=== PATIENT | male | born 1940 | race Caucasian/White ===

== ENCOUNTER → 2017-10-17 | Day surgery (SDC) | payer OTHER, MEDICARE ==
[2017-10-12 08:57] VITALS: Ht 176.5 cm; Wt 66.8 kg
[~2017-10-17] VITALS: Ht 176.5 cm; Wt 66.8 kg
[~2017-10-17] MED LIST: ALLO300T2 PO; ASPCH81X PO; ATOR-26 PO; BUPIVACAINE 0.25% 30 ML VIAL ONE; DLCSR180 PO; FINA5TAB PO; LIDOCAINE HCL 1% MPF 5 ML VIAL ONE; METO50TA8 PO; MIRT45TA PO; MISCTAB78 PO; MULT-506 PO; RIVA1TAB4 PO
--- NOTE | 2017-10-17 14:58 | History & Physical Bridge - [place] ---
H&P Re-Evaluation Bridge Note: I have examined the patient, reviewed the History & Physical and in the interval since the performance of the History & Physical I have noted the following changes of clinical significance: No changes noted
--- NOTE | 2017-10-17 15:18 | [facility] Post Operative Brief Note ---
Immediate Operative Summary Operative Date Oct 17, 2017. Pre-Operative Diagnosis Lumbar facet joint pain Post-Operative Diagnosis Same Procedure(s) Performed Right L5-S1 Medial Branch Block Surgeon Dr. Tatianna Dukes Realty Specialist Surgeon(s) None Estimated Blood Loss 0 Findings Consistent with Post-Op Diagnosis Specimens NA Anesthesia Type Local Complication(s) none Disposition Disposition:
--- NOTE | 2017-10-17 15:19 | Discharge Instructions ---
Discharge Instructions Date of Service Oct 17, 2017. Visit Reason for Visit: Lumbar Facet Joint Pain, Low Back Pain Discharge Discharge Diagnosis / Problem: Low back pain Discharge Goals Goal(s): Decrease discomfort, Improve function Activity Recommendations Activity Limitations: resume your previous activity Anesthesia . Post Anesthesia Instructions: If you have had General Anesthesia or IV Sedation: * Do not drive today. * Resume driving when surgeon permits. * Do not make important decisions or sign legal documents today. * Call surgeon for: 1. Temperature elevations greater than 101 degrees F. 2. Uncontrollable pain. 3. Excessive bleeding. 4. Persistent nausea and vomiting. 5. Medication intolerance (nausea, vomiting or rash). * For nausea and vomiting use only clear liquids such as: tea, soda, bouillon until nausea subsides, then gradually increase diet as tolerated. * If you have any concerns or questions, call your surgeon's office. If physician is unavailable and it is an emergency, call 911 or go to the nearest emergency room. . Diet Recommendations Recommended Home Diet: resume previous diet Procedures Procedures Performed: Right L5-S1 Medial Branch Block Pending Studies Studies pending at discharge: no Medical Emergencies . Who to Call and When: Medical Emergencies: If at any time you feel your situation is an emergency, please call 911 immediately. . Non-Emergent Contact Non-Emergency issues call your: Specialist . . "Provider Documentation" section prepared by Roni Dukes. .
[2017-10-17 15:30] VITALS: TEMP 37
[2017-10-17 15:47] VITALS: BP 132/86; PULSE 89; O2SAT 97
--- NOTE | 2017-10-17 19:34 | OPERATIVE REPORT ---
DATE OF OPERATION: 10/17/2017 PREOPERATIVE DIAGNOSES: Lumbar facet joint pain, chronic low back pain. POSTOPERATIVE DIAGNOSIS: Lumbar facet joint pain, chronic low back pain. PROCEDURE: Right L5-S1 medial branch blocks. INDICATIONS: The patient is a 77-year-old white male with a few year history of chronic low back pain. He describes over the past 2 or 3 years, he denies any radicular pain but it is in the lower back consistent with a facet arthropathy. He presents today for medial branch blocks to confirm this is indeed the pain generator of the back. PHYSICAL EXAMINATION: GENERAL: Pleasant male, seated comfortably. MUSCULOSKELETAL: He has tenderness to palpation of the right L5-S1 facet region, worse with extension, rotation. He has normal lower extremity strength. CONSENT: Verbal and written consent was obtained from the patient. Risks and benefits were reviewed. Risks include but are not limited to abscess, allergic reaction and wishes to proceed. PROCEDURE: The patient was taken back to the special procedures room of [facility]. He is maintained in a prone position. Backside was cleansed with Betadine x3 and a dry sterile dressing was applied. Fluoroscope was used to identify the L5 transverse process junction and the right sacral ala. Overlying skin was anesthetized with 2.5 mL of lidocaine 1% with a 25-gauge 1.5-inch needle at each site. A 25-gauge 3-1/2-inch spinal needle contacted bone on each side, was then injected with 1 mL of bupivacaine 0.25%. Injections were well tolerated. DISPOSITION: 1. The patient is taken out into the discharge recovery area where he will be discharged home once discharge criteria have been met. 2. Follow up in the [facility] office in 4 weeks' time. I attest to the content of the Intraoperative Record and any orders documented therein. Any exceptions are noted below. THAD
== END | disposition home or self-care (01) ==
LOC: X.SURG 13:51
PROVIDERS: ATTEND Physical Medicine & Rehabilitation
DX: M47.817 Spondylosis without myelopathy or radiculopathy, lumbosacral region (principal)

== ENCOUNTER 2018-09-30 07:40 | Observation (INO) ==
--- NOTE | 2018-09-30 07:56 | Emergency Department Note ---
Entered by Gila Hernandez acting as a scribe for History of Present Illness General Chief complaint: Chest Pain Time Seen by Provider: 09/30/18 07:56 Source: patient Mode of arrival: EMS History of Present Illness Onset (ago): hour(s) 1 Location: chest Pain Consistency: + other (episode) Quality: + other (discomfort) Relieved By: + medication (nitro) Exacerbated By: not by other (exertion) Associated symptoms: + denies other symptoms (black or bloody stools); no shortness of breath The patient is a 78 year old male with a history of an [place], atrial fibrillation, and blood clots that is presenting to the Emergency Room with complaints of an episode of chest pressure that started this morning around 1 hour ago at 0645 when the patient woke up. The patient states that he woke up from a dream where he was feeling short of breath and felt like he was having some indigestion as he was burping. He states that he noticed some chest discomfort around this time. He notes that he decided to wait a few minutes and took his morning medic cinda. He states that he then decided to call EMS due to his cardiac history. He denies any significant pain and states that the discomfort was 3/10 at its worst. He denies any pain currently. He denies any shortness of breath or dyspnea. He notes that he received aspirin and nitro in the ambulance which might have helped his symptoms. He states that his discomfort was not worsened by exertion. The patient reports that he had an WY 5 years ago that was not accompanied by any pain. He states that he is unsure if his current symptoms resemble past episodes. He notes that he is due to see Dr. Perez, Cardiology, tomorrow. He reports that he has a history of atrial fibrillation and blood clots and states that he takes Xaralto. He denies any history of diabetes. He states that his hypertension and dyslipidemia are well-controlled with medication. Home Medications Home Medications Medication Instructions Recorded Confirmed Type Xarelto 20 mg PO QAM 02/20/18 09/30/18 History allopurinol 300 mg PO QAM 02/20/18 09/30/18 History aspirin 1 tab PO QAM 02/20/18 09/30/18 History atorvastatin 80 mg PO QAM 02/20/18 09/30/18 History cyanocobalamin (vitamin B-12) 1,000 mcg PO QDL 02/20/18 09/30/18 History diazepam 5 mg PO TID PRN 02/20/18 09/30/18 History diltiazem HCl [Cartia XT] 180 mg PO QAM 02/20/18 09/30/18 History finasteride 5 mg PO QAM 02/20/18 09/30/18 History metoprolol succinate 50 mg PO QAM 02/20/18 09/30/18 History ranitidine HCl 150 mg PO BID 02/20/18 09/30/18 History guaifenesin [Mucinex] 600 mg PO HS 09/30/18 09/30/18 History ipratropium bromide 42 mcg (0.06 2 sprays INTNAS TID 09/30/18 09/30/18 History %) nasal spray multivitamin 1 tab PO QDL 09/30/18 09/30/18 History Allergies Allergy/AdvReac Type Severity Reaction Status Date / Time latex Allergy Mild RASH Verified 09/30/18 07:59 Past Med/Surg History Medical History Atrial fibrillation (Acute) CAD (coronary artery disease) (Acute) Chronic low back pain (Acute) Depression (Acute) Gout (Acute) Hyperlipidemia (Acute) Hypertension (Acute) Mixed hyperlipidemia (Acute) Vitamin B12 deficiency (Acute) Atrial fibrillation BPH (benign prostatic hyperplasia) Cancer BCC M[facility]ANOMA REMOVAL 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 Depression GERD (gastroesophageal reflux disease) Gout Hyperlipidemia Hypertension Macular pucker Migraine Myocardial Infarction 4 YEARS AGO Osteoarthritis Surgical History H/O shoulder surgery LEFT H/O toe surgery RT/LEFT BIG TOE SURGERIES History of arthroscopy RT KNEE History of cardiac cath 4 YEARS AGO History of colonoscopy History of heart artery stent 1 STENT PLACED 4 YEARS AGO History of herniorrhaphy History of tonsillectomy History of tooth extraction Hx of eye surgery RT/LEFT LENS REPLACEMENT Family History Father AAA (abdominal aortic aneurysm) from complications of AAA repair Mother , age 71 Pancreatic cancer Social History Preferred Language: Kittitian Communication Ability: Effective Gis Technician Required: No Beliefs That Will Affect Care: None marital status: marital status details: 1 son, 1 daughter Current Living Situation: Spouse 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 and A total of 10 systems reviewed and were otherwise negative Physical Exam Vital Signs Vital Signs - 24 hr 09/30/18 07:44 09/30/18 07:53 09/30/18 09:01 Temperature 36.6 C Temperature Source Oral Sepsis Recent Fever Within 48 Hours No Sepsis New/Unexplained Change in Mental Status No Sepsis Action Taken by Nursing No Action Required Pulse Rate 82 Pulse Rate [Left Finger] 110 H Respiratory Rate 20 18 Blood Pressure 143/106 H Blood Pressure [Right Arm] 146/110 H Blood Pressure Mean 118 Blood Pressure Mean [Right Arm] 122 Pulse Oximetry 93 93 95 Oxygen Delivery Method Room Air Room Air Room Air 09/30/18 11:14 Temperature Temperature Source Sepsis Recent Fever Within 48 Hours Sepsis New/Unexplained Change in Mental Status Sepsis Action Taken by Nursing Pulse Rate Pulse Rate [Left Finger] 82 Respiratory Rate 18 Blood Pressure Blood Pressure [Right Arm] 123/84 Blood Pressure Mean Blood Pressure Mean [Right Arm] 97 Pulse Oximetry 95 Oxygen Delivery Method Room Air General: Non-ill appearing older male in no acute distress. HEENT: Normal cephalic atraumatic. Pupils are equal round and reactive to light. Extraocular movements are intact. Oropharynx is pink with moist mucous membranes. No swelling of the mouth lips or tongue. Neck: Supple with a midline trachea. No meningeal signs or stiffness, no JVD or bruits. No Stridor. Chest: Clear to auscultation bilaterally. No wheezes or rhonchi. No increased work of breathing. Heart: Irregularly irregular rhythem and tachycardic rate. Abdomen: Soft nontender, nondistended without rebound guarding or rigidity. Extremities: No cyanosis clubbing or edema. No calf tenderness or asymmetry Spine/Back. Non tender to palpation. No CVA tenderness Skin: Good turgor without rashes. Neurologic exam: Cranial nerves two through 12 are intact. Motor and sensation are intact and symmetrical throughout. Course 0743:The patient was evaluated in room A03. A complete history and physical examination was performed. 0829: I reevaluated the patient at this time. He is resting comfortably. 0902: I discussed the patients case with KINGSLEY Dang, who will evaluate the patient for further management and care. 0905: Upon reevaluation, the patient is resting comfortably. I discussed laboratory and radiographic results with the patient. He verbalized agreement of the treatment plan. The patient will be evaluated for further management and care. Consultations Consultation #1: I discussed the patients case with KINGSLEY Dang, who will evaluate the patient for further management and care. Time: 09:02 Administered Medications Cyanocobalamin (Vitamin B-12) 1,000 mcg PO QDL MARIZOL Stop: 10/30/18 11:44 Last Admin: 09/30/18 13:20 Dose: Not Given Documented by: [id number] Potassium Chloride/Dextrose/Sod Cl (D5nss + 20meq Kcl) 20 meq in 1,000 mls @ 75 mls/hr IV .[id number] MARIZOL Stop: 10/01/18 01:04 Last Admin: 09/30/18 12:54 Dose: 75 mls/hr Documented by: [id number] Ipratropium [place] (Atrovent Nasal [place] 0.06%) 2 sprays NA TID MARIZOL Stop: 10/30/18 13:59 Last Admin: 09/30/18 15:19 Dose: Not Given Documented by: [id number] Multivitamins (Multivitamin Tab) 1 tab PO QDL MARIZOL Stop: 10/30/18 11:44 Last Admin: 09/30/18 13:20 Dose: Not Given Documented by: [id number] Discontinued Medications Ranitidine HCl (Zantac) 150 mg PO NOW STA Stop: 09/30/18 10:19 Last Admin: 09/30/18 11:13 Dose: 150 mg Documented by: [id number] Medical Decision Making Differential Diagnosis Differential diagnosis: Etiologies such as acute coronary syndrome, arrhythmia, electrolyte or metabolic abnormalities, pulmonary embolism, CHF as well as others were entertained. Medical Records Attestation: I reviewed the patient's medical records. Home Medications Current Medication List: was personally reviewed by me Laboratory Data Attestation: I reviewed the patient's lab results. Result diagrams: 09/30/18 08:07 09/30/18 08:07 Lab Results 09/30/18 09/30/18 09/30/18 Range/Units 08:07 08:07 08:07 WBC 7.30 (4.8-10.8) K/uL RBC 3.95 L (4.7-6.1) M/uL Hgb 14.2 (14.0-18.0) g/dL Hct 43.0 (42-52) % MCV 108.9 H (80-100) fL MCH 35.9 H (25-34) pg MCHC 33.0 (32-36) g/dL RDW Std Deviation 56.8 H (36.4-46.3) fL RDW Coeff of Laina 14.2 (11.5-14.5) % Plt Count 137 (130-400) K/uL MPV 10.6 H (7.4-10.4) fL Immature Gran % (Auto) 0.5 % Neut % (Auto) 59.6 % Lymph % (Auto) 25.2 % [place] % (Auto) 10.8 % Eos % (Auto) 3.6 % Baso % (Auto) 0.3 % Immature Gran # (Auto) 0.04 H (0.00-0.02) K/uL Neut # (Auto) 4.35 (1.4-6.5) K/uL Lymph # (Auto) 1.84 (1.2-3.4) K/uL [place] # (Auto) 0.79 H (0.11-0.59) K/uL Eos # (Auto) 0.26 (0-0.5) K/uL Baso # (Auto) 0.02 (0-0.2) K/uL PT 12.2 H (9.0-12.0) Seconds INR 1.2 H (0.9-1.1) APTT 32.9 H (21.0-31.0) Seconds PTT Ratio 1.2 Sodium 143 (136-145) mmol/L Potassium 4.3 (3.5-5.1) mmol/L Chloride 108 H (98-107) mmol/L Carbon Dioxide 28 (21-32) mmol/L Anion Gap 7.0 (3-11) BUN 26 H (7-18) mg/dl Creatinine 1.20 (0.6-1.4) mg/dl Est Cr Clr Drug Dosing 47.6 ml/min Est GFR ( Amer) 65.8 Est GFR (Non-Af Amer) 56.8 BUN/Creatinine Ratio 21.5 H (10-20) Glucose 85 (70-99) mg/dl Calcium 8.7 (8.5-10.1) mg/dl Total Bilirubin 0.6 (0.2-1) mg/dl AST 40 H (15-37) U/L ALT 37 (12-78) U/L Alkaline Phosphatase 121 H (45-117) U/L Troponin I < 0.015 (0-0.045) ng/ml Total Protein 6.3 L (6.4-8.2) gm/dl Albumin 3.0 L (3.4-5.0) gm/dl Globulin 3.3 (2.5-4.0) gm/dl Albumin/Globulin Ratio 0.9 (0.9-2) Lipase 274 (73-393) U/L Imaging Data Radiologist's Impression: Radiology results as stated below per my review and the radiologist's interpretation: XR chest 1V portable HISTORY: 78 years-old Male Chest Pain . Atypical chest pain COMPARISON: Acute abdominal series radiographs 12/14/2017 TECHNIQUE: Portable AP view of the chest FINDINGS: Cardiomediastinal and hilar silhouettes are unchanged. Tortuosity of the descending thoracic aorta. Unchanged mild blunting of the costophrenic angles. No pneumothorax, large pleural effusion or overt pulmonary edema. Linear subsegmental bibasilar opacities suggest atelectasis. Degenerative changes are seen about the shoulders and spine. IMPRESSION: No acute process. The above report was generated using voice recognition software. It may contain grammatical, syntax or spelling errors. Electronically signed by: Breezy Spencer M.D. 09/30/2018 8:22 AM ECG Data Attestation: I personally reviewed and interpreted this ECG as follows: Indication: chest pain Rate (beats per minute): 90 Rhythm: atrial fibrillation Findings: no ST depression, no ST elevation and no acute ischemic change Comparison ECG Date: no prior available Blood Pressure Blood Pressure Findings: Elevated blood pressure Blood Pressure Disposition: Referred to patients primary care provider MDM Narrative This patient comes in as described above. 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 He is here for treatment evaluation after having indigestion/chest pain this morning. He does have a cardiac history. He did receive aspirin prior to arrival as well as 1 sublingual nitroglycerin. he no longer has any chest pain or discomfort. he still feels like he is burping occasionally. IV access established, EKG and blood work was obtained. his initial EKG does not show any ischemic changes it does show rate controlled A. fib which she is in chronically. He does also have a history of PE/DVT he has no shortness of breath or pleurisy. Multiple blood testing was obtained. He was reassessed frequently. I discussed did discuss his care with his as well who is at the bedside. His troponin is negative. Chest x-ray was unremarkable he is no acute electrolyte or metabolic abnormalities. His heart score is 5 and given this I do think he needs to be admitted/observed and have consult the hospitalist for this. Impression & Plan Chest pain, Atrial fibrillation, Current use of senior care anticoagulation, CAD (coronary artery disease) Discharge Plan Visit Data *Final* Discharge Date/Time: 09/30/18 11:18 Chief Complaint: Chest Pain ED Provider: Jermaine Lala Discharge Problem: Chest pain, Atrial fibrillation, Current use of senior care anticoagulation, CAD (coronary artery disease) Patient Disposition: Admitted As Inpatient Discharge Instructions Interventions: ED Discharge Assessment Last Done: 09/30/18 11:18 The scribe's documentation has been prepared under my direction and personally reviewed by me in its entirety. I confirm that the note above accurately reflects all work, treatment, procedures, and medical decision making performed by me.
[2018-09-30 08:18] LABS: Basophils # (auto) 0.02 K/uL (0-0.2); Basophils % (auto) 0.3 %; Eosinophils # (auto) 0.26 K/uL (0-0.5); Eosinophils % (auto) 3.6 %; Hemoglobin 14.2 g/dL (14.0-18.0); Immature Granulocytes # (auto) 0.04 K/uL (0.00-0.02); Immature Granulocytes % (auto) 0.5 %; Lymphocytes # (auto) 1.84 K/uL (1.2-3.4); Lymphocytes % (auto) 25.2 %; Mean Corpuscular Volume 108.9 fL (80-100); Mean Platelet Volume 10.6 fL (7.4-10.4); Monocytes # (auto) 0.79 K/uL (0.11-0.59); Monocytes % (auto) 10.8 %; Neutrophils # (auto) 4.35 K/uL (1.4-6.5); Neutrophils % (auto) 59.6 %; Platelet Count 137 K/uL (130-400); RDW Coefficient of Variation 14.2 % (11.5-14.5); RDW Standard Deviation 56.8 fL (36.4-46.3); Red Blood Count 3.95 M/uL (4.7-6.1)
--- NOTE | 2018-09-30 08:24 | XRay Report ---
XR chest 1V portable HISTORY: 78 years-old Male Chest Pain . Atypical chest pain COMPARISON: Acute abdominal series radiographs 12/14/2017 TECHNIQUE: Portable AP view of the chest FINDINGS: Cardiomediastinal and hilar silhouettes are unchanged. Tortuosity of the descending thoracic aorta. U nchanged mild blunting of the costophrenic angles. No pneumothorax, large pleural effusion or overt p ulmonary edema. Linear subsegmental bibasilar opacities suggest atelectasis. Degenerative changes are seen about the shoulders and spine. IMPRESSION: No acute process. The above report was generated using voice recognition software. It may contain grammatical, syntax o r spelling errors. Electronically signed by: Breezy Spencer M.D. 09/30/2018 8:22 AM
[2018-09-30 08:28] LABS: INR 1.2 (0.9-1.1); Partial Thromboplastin Ratio 1.2; Partial Thromboplastin Time 32.9 Seconds (21.0-31.0); Prothrombin Time 12.2 Seconds (9.0-12.0)
[2018-09-30 08:35] LABS: Alanine Aminotransferase 37 U/L (12-78); Aspartate Aminotransferase 40 U/L (15-37); BUN Creatinine Ratio 21.5 (10-20); Blood Urea Nitrogen 26 mg/dl (7-18); Calcium 8.7 mg/dl (8.5-10.1); Carbon Dioxide 28 mmol/L (21-32); Chloride 108 mmol/L (98-107); Creatinine Clr Calc Pharmacy 47.6 ml/min; Est GFR (African American) 65.8; Est GFR (Non-African American) 56.8; Glucose 85 mg/dl (70-99); Potassium 4.3 mmol/L (3.5-5.1); Sodium 143 mmol/L (136-145)
[2018-09-30 08:40] LABS: Albumin Globulin Ratio 0.9 (0.9-2); Alkaline Phosphatase 121 U/L (45-117); Bilirubin,Total 0.6 mg/dl (0.2-1); Globulin 3.3 gm/dl (2.5-4.0); Total Protein 6.3 gm/dl (6.4-8.2); Troponin I < 0.015 ng/ml (0-0.045)
--- NOTE | 2018-09-30 09:25 | History & Physical Report ---
Date of Service September 30, 2018 Assessment & Plan (1) Chest pain: Resolved after <45-60 minutes of symptoms. ?response to SL nitro in the ambulance en route to [facility]. Symptoms were DIFFERENT than previous heart attack pain 5 years ago. Symptoms awoke him from sleep. Prominent burping/belching with it; no other CV symptoms. Initial troponin and EKG normal. Spoke with Dr Perez and Dr Gordon from cardiology. Dr Gordon to evaluate to see if he is a candidate for stress test later today or if it is more prudent to observe him through the day today & pursue stress tomorrow AM. Check troponin at noon. Place on tele. Continue all cardiac meds from home including asa, statin, BB, etc. If the pain was noncardiac then suspect GI in origin. Cont H2 francheska BID. Present on Admission?: Yes (2) CAD (coronary artery disease): with acute CO 5 years ago in [place]. s/p stent at that time. Would need to consult with [employer] to see details of that event. Cont asa, statin, etc. Cardiology consultation. Stress test while here. Present on Admission?: Yes (3) Atrial fibrillation: Rates controlled. Cont BB and CCB. Cont xarelto. Tele status. Present on Admission?: Yes (4) Gout: cont allopurinol for prophylaxis Present on Admission?: Yes (5) Hypertension: BPs mildly high; if they continue to run high then adjust meds. Present on Admission?: Yes (6) Hyperlipidemia: Cont statin. Check records to see when last lipid profile was. Present on Admission?: Yes (7) Vitamin B12 deficiency: resolved. last level 12/2017 was >1000. Present on Admission?: No (8) Macrocytosis: cause? previous b12 level wnl. check TSH. check folate. if normal - early MDS?? Present on Admission?: Yes (9) DVT prophylaxis: xarelto place patient on observation status updated History of Present Illness Chief Complaint: "indigestion" Primary Care Provider: Gerry Joseph MD 78yo male with history of CAD and chronic a.fib who presents with "indigestion" starting at 7am this am. He was sleeping and had a vivid dream about the beach. He awoke to a sensation of "indigestion" and pressure in his chest. Location - sternal area. He was previously hospitalized for an acute CO in [place] years ago. He underwent stenting of the coronary occlusion about 5 years in [place]. Today's discomfort/indigestion was DIFFERENT than the chest pressure he had experienced with his heart attack. He had associated burping but no nausea or vomiting. No sweats/diaphoresis. No dyspnea. No radiation of chest pressure to his neck, jaw or arms. He got up from bed and took his AM meds. He continued to burp and this relieved some of the symptoms. Since the pressure persisted he called 911. In the ambulance he was given SL nitro - he isn't sure if it helped. During my assessment he reports all symptoms are resolved. In the weeks leading up to this visit he has had NO GERD symptoms or other GI intolerance. Sees Dr Perez from [facility]. Last stress test - 2 years ago in [place] (negative). Allergies Allergy/AdvReac Type Severity Reaction Status Date / Time latex Allergy Mild RASH Verified 09/30/18 07:59 Home Medications Home Medications Medication Instructions Recorded Confirmed Type Xarelto 20 mg PO QAM 02/20/18 09/30/18 History allopurinol 300 mg PO QAM 02/20/18 09/30/18 History aspirin 1 tab PO QAM 02/20/18 09/30/18 History atorvastatin 80 mg PO QAM 02/20/18 09/30/18 History cyanocobalamin (vitamin B-12) 1,000 mcg PO QDL 02/20/18 09/30/18 History diazepam 5 mg PO TID PRN 02/20/18 09/30/18 History diltiazem HCl [Cartia XT] 180 mg PO QAM 02/20/18 09/30/18 History finasteride 5 mg PO QAM 02/20/18 09/30/18 History metoprolol succinate 50 mg PO QAM 02/20/18 09/30/18 History ranitidine HCl 150 mg PO BID 02/20/18 09/30/18 History guaifenesin [Mucinex] 600 mg PO HS 09/30/18 09/30/18 History ipratropium bromide 42 mcg (0.06 2 sprays INTNAS TID 09/30/18 09/30/18 History %) nasal spray multivitamin 1 tab PO QDL 09/30/18 09/30/18 History Past Med/Surg History Medical History Atrial fibrillation (Acute) CAD (coronary artery disease) (Acute) Chronic low back pain (Acute) Depression (Acute) Gout (Acute) Hyperlipidemia (Acute) Hypertension (Acute) Mixed hyperlipidemia (Acute) Vitamin B12 deficiency (Acute) Atrial fibrillation BPH (benign prostatic hyperplasia) Cancer BCC MELANOMA REMOVAL 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 Depression GERD (gastroesophageal reflux disease) Gout Hyperlipidemia Hypertension Macular pucker Migraine Myocardial Infarction 4 YEARS AGO Osteoarthritis Surgical History H/O shoulder surgery LEFT H/O toe surgery RT/LEFT BIG TOE SURGERIES History of arthroscopy RT KNEE History of cardiac cath 4 YEARS AGO History of colonoscopy History of heart artery stent 1 STENT PLACED 4 YEARS AGO History of herniorrhaphy History of tonsillectomy History of tooth extraction Hx of eye surgery RT/LEFT LENS REPLACEMENT Family History Father AAA (abdominal aortic aneurysm) from complications of AAA repair Mother , age 71 Pancreatic cancer Social History Preferred Language: Hungarian Communication Ability: Effective Beliefs That Will Affect Care: None marital status: marital status details: 1 son, 1 daughter Current Living Situation: Spouse 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 other: live in [place] Feels Safe at Home: Yes Smoking Status: Never smoker Second Hand Exposure: No Hx Alcohol Use: Yes Alcohol type: hard liquor Alcohol type Comment: vodka Alcohol Intake Frequency: Daily Alcohol Intake Frequency Comment: 1-2/day Hx Substance Use: No Review of Systems Constitutional: no fever, no anorexia and no weight loss Eyes: no worsening vision Ear, Nose, Mouth, Throat: + post nasal drip; no sore throat and no dysphagia Respiratory: no cough, no dyspnea and no dyspnea on exertion Cardiovascular: as per Subjective / HPI and + chest pain; no orthopnea, no paroxysmal nocturnal dyspnea and no edema Gastrointestinal: + change in bowel habits; no abdominal pain, no nausea and no vomiting Genitourinary: no dysuria Musculoskeletal: no joint pain Integumentary: no rash Neurologic: no numbness Psychiatric: no depression Endocrine: no diabetes Hematologic / Lymphatic: + easy bruising Physical Exam Constitutional: well developed, well nourished and average body habitus; no acute distress and no altered mental status Eyes: PERRL (lens implants b/l) ENMT: external ear and nose normal, oropharynx normal Ears: no TM abnormality Neck: trachea midline, no thyromegaly Respiratory: normal respiratory effort, lungs clear to auscultation Cardiovascular: Rate/Rhythm: regular rate and + irregularly irregular Heart Sounds: normal S1 and normal S2; no murmur Vessels: posterior tibial pulses present and dorsalis pedis pulses present; no JVD Extremities: no edema Chest (Breasts): Additional Comments: no reproducible chest wall discomfort to palpation Gastrointestinal (Abdomen): normal bowel sounds, soft, nontender, no hepatosplenomegaly Musculoskeletal: no cyanosis or clubbing, extremities motor strength 5/5 Skin: scar middle of forehead (prior melanoma); petechial type rash on legs Neurologic: deep tendon reflexes 2+ bilaterally; no focal motor deficits Psychiatric: A+Ox3, euthymic affect Lymphatic: no cervical lymphadenopathy Results & Data Vital Signs (Past 12 Hours) Vital Signs Temp Pulse Pulse Resp BP BP Pulse Ox 09/30/18 09:01 110 H 18 146/110 H 95 09/30/18 07:53 93 09/30/18 07:44 36.6 C 82 20 143/106 H 93 Laboratory Results Laboratory Results - last 24 hr 09/30/18 09/30/18 09/30/18 08:07 08:07 08:07 WBC 7.30 RBC 3.95 L Hgb 14.2 Hct 43.0 MCV 108.9 H MCH 35.9 H MCHC 33.0 RDW Std Deviation 56.8 H RDW Coeff of Laina 14.2 Plt Count 137 MPV 10.6 H Immature Gran % (Auto) 0.5 Neut % (Auto) 59.6 Lymph % (Auto) 25.2 [place] % (Auto) 10.8 Eos % (Auto) 3.6 Baso % (Auto) 0.3 Immature Gran # (Auto) 0.04 H Neut # (Auto) 4.35 Lymph # (Auto) 1.84 [place] # (Auto) 0.79 H Eos # (Auto) 0.26 Baso # (Auto) 0.02 PT 12.2 H INR 1.2 H APTT 32.9 H PTT Ratio 1.2 Sodium 143 Potassium 4.3 Chloride 108 H Carbon Dioxide 28 Anion Gap 7.0 BUN 26 H Creatinine 1.20 Est Cr Clr Drug Dosing 47.6 Est GFR ( Amer) 65.8 Est GFR (Non-Af Amer) 56.8 BUN/Creatinine Ratio 21.5 H Glucose 85 Calcium 8.7 Total Bilirubin 0.6 AST 40 H ALT 37 Alkaline Phosphatase 121 H Troponin I < 0.015 Total Protein 6.3 L Albumin 3.0 L Globulin 3.3 Albumin/Globulin Ratio 0.9 Lipase 274 Diagnostic Findings cxr - no acute process EKG - a.fib, rate <100; no ST changes Code Status & VTE Plan Code Status full code VTE Prophylaxis Plan VTE Prophylaxis will be ordered: Yes PG Care Time/CCT Total # of Minutes Spent Total Time Spent with Patient: Total time spent is greater than 50% in coordination of care (as documented) at patient's floor/unit and/or counseling patient: (1) Chest pain Chest pain type: unspecified Qualified Code(s): R07.9 - Chest pain, unspecified (2) CAD (coronary artery disease) Coronary Disease-Associated Artery/Lesion type: [place] artery [place] vs. transplanted heart: [place] heart Associated angina: angina presence unspecified Qualified Code(s): I25.10 - Atherosclerotic heart disease of [place] coronary artery without angina pectoris (3) Atrial fibrillation Atrial fibrillation type: chronic Qualified Code(s): I48.2 - Chronic atrial fibrillation (4) Gout Gout site: unspecified site Gout etiology: unspecified cause Chronicity: unspecified Qualified Code(s): M10.9 - Gout, unspecified (5) Hypertension Hypertension type: essential hypertension Qualified Code(s): I10 - Essential (primary) hypertension (6) Hyperlipidemia Hyperlipidemia type: mixed hyperlipidemia Qualified Code(s): E78.2 - Mixed hyperlipidemia
[2018-09-30] MEDS ORDERED: ACETAMINOPHEN 325 MG TAB PO PRN (11:45)
[2018-09-30] MEDS ORDERED: NITROGLYCERIN SL 0.4 MG/TAB TAB SL PRN (11:45)
[2018-09-30] MEDS ORDERED: ALUMINUM/MAGNESIUM SUSP 30 ML UDC PO PRN (11:45)
[2018-09-30] MEDS ORDERED: diazePAM 5 MG TABLET PO PRN (11:45)
[2018-09-30] MEDS ORDERED: ONDANSETRON INJ 2 MG/ML 2 ML VIAL IV PRN (11:45)
[2018-09-30] MEDS ORDERED: MULTIVITAMIN TAB PO SCH (11:45)
[2018-09-30] MEDS ORDERED: D5NSS + 20MEQ KCL 20 MEQ/1,000 ML BAG IV SCH (11:45)
[2018-09-30] MEDS ORDERED: MAGNESIUM HYDROXIDE SUSP 30 ML UDC PO PRN (11:45)
[2018-09-30] MEDS ORDERED: CYANOCOBALAMIN 500 MCG TABLET (VITAMIN B-12) PO SCH (11:45)
[2018-09-30 12:34] LABS: Troponin I < 0.015 ng/ml (0-0.045)
[2018-09-30] MEDS ORDERED: IPRATROPIUM BROMIDE NASAL SPRAY 0.06% 15ML SCH (14:00)
--- NOTE | 2018-09-30 16:41 | Cardiology Consultation ---
Date of Consultation September 30, 2018 Assessment & Plan (1) Chest pain: I am not sure we can call his symptoms chest pain. He describes it only as a discomfort and points primarily to his epigastrium rather than his precordium. Most of his symptoms involved eructation and a sense of discomfort that appeared resolved without any specific intervention. He also appear to have some additional gastrointestinal distress as he needed to have a bowel movement upon arrival to the emergency room. While ischemia related to the right coronary artery could certainly produce symptoms reminiscent of indigestion, eructation and GI upset, there was no objective findings of cardiac ischemia. This symptom was relatively short-lived but likely would produce some elevation in his biomarkers if he truly had ischemia. He otherwise appears to be an active individual without symptoms suggestive of coronary insufficiency. He is very anxious to go home. I think with the absence of any objective evidence of ischemia he could be safely discharged with routine follow-up in the outpatient setting possibly to include perfusion imaging. He can continue on his current outpatient medical regimen which includes high- dose atorvastatin, beta-blockade, aspirin and systemic anticoagulation (2) Atrial fibrillation: This is reportedly paroxysmal. He is not aware of the arrhythmia. He is adequately rate controlled and on appropriate systemic anticoagulation. Unclear if he requires aspirin in addition to his anticoagulation. (3) CAD (coronary artery disease): He has a history of percutaneous intervention involving the right coronary artery. He is not currently having symptoms of coronary insufficiency or angina with activity. No objective findings to suggest that his symptoms this morning were related to cardiac ischemia. He should continue aggressive secondary prevention as noted above. History of Present Illness Reason for Consultation: Chest pain Requesting Physician: Jimmy Attending Physician: Iftikhar Marquez History of Present Illness Patient is an 78-year-old gentleman with a history of coronary artery disease having previously undergone percutaneous intervention to the right coronary artery in 2013. This occurred in [place]. The patient recalls that particular event as 1 where he was playing golf and became somewhat weak. He states that he was having some mild breathing difficulty and a physician with whom he was golfing suggested he go to the emergency room. According to the patient he was discovered to be having a heart attack and underwent the aforemen tioned intervention. This morning, the patient awoke and he had some discomfort in the epigastric region. He felt that this was unusual and concerning for a heart issue. The patient had some eructation as well. He nearly immediately contacted EMS but his symptoms seem to resolve prior to the arrival of the ambulance crew. Curiously, he reports being administered nitroglycerin upon EMS arrival despite being free of symptoms. He states that his symptoms had resolved entirely by the time he reached the emergency room. However, he did need to take a bowel movement upon arrival and did defecate once in the emergency room. He was admitted for observation and has felt well since arrival. Patient appears to be in a lot of stress due to a required repair in his home. Seems that he recently had a new refrigerator installed which unfortunately developed a leak in the water line and room and his hardwood floor. He is quite concerned because he has an director insurance arriving at his house tomorrow for an evaluation in he feels that his will need him to be present during this visit. In general, he claims to be an active individual. He reports playing golf and singles tennis regularly. He does not play doubles tennis as he feels that this is more of a social endeavor rather than a sport. He does not report symptoms of chest discomfort or abdominal discomfort when active. He has not report symptoms of limiting dyspnea. He reports being told that he occasionally has atrial fibrillation but has been unaware of any palpitations associated with the arrhythmia. Allergies Allergy/AdvReac Type Severity Reaction Status Date / Time latex Allergy Mild RASH Verified 09/30/18 07:59 Home Medications Home Medications Medication Instructions Recorded Confirmed Type Xarelto 20 mg PO QAM 02/20/18 09/30/18 History allopurinol 300 mg PO QAM 02/20/18 09/30/18 History aspirin 1 tab PO QAM 02/20/18 09/30/18 History atorvastatin 80 mg PO QAM 02/20/18 09/30/18 History cyanocobalamin (vitamin B-12) 1,000 mcg PO QDL 02/20/18 09/30/18 History diazepam 5 mg PO TID PRN 02/20/18 09/30/18 History diltiazem HCl [Cartia XT] 180 mg PO QAM 02/20/18 09/30/18 History finasteride 5 mg PO QAM 02/20/18 09/30/18 History metoprolol succinate 50 mg PO QAM 02/20/18 09/30/18 History ranitidine HCl 150 mg PO BID 02/20/18 09/30/18 History guaifenesin [Mucinex] 600 mg PO HS 09/30/18 09/30/18 History ipratropium bromide 42 mcg (0.06 2 sprays INTNAS TID 09/30/18 09/30/18 History %) nasal spray multivitamin 1 tab PO QDL 09/30/18 09/30/18 History Patient History Medical History Atrial fibrillation (Chronic) CAD (coronary artery disease) (Chronic) Chronic low back pain (Acute) Depression (Acute) Gout (Chronic) Hyperlipidemia (Chronic) Hypertension (Chronic) Mixed hyperlipidemia (Acute) Vitamin B12 deficiency (Resolved) Atrial fibrillation BPH (benign prostatic hyperplasia) Cancer BCC MELANOMA REMOVAL 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 Depression GERD (gastroesophageal reflux disease) Gout Hyperlipidemia Hypertension Macular pucker Migraine Myocardial Infarction 4 YEARS AGO Osteoarthritis Surgical History H/O shoulder surgery LEFT H/O toe surgery RT/LEFT BIG TOE SURGERIES History of arthroscopy RT KNEE History of cardiac cath 4 YEARS AGO History of colonoscopy History of heart artery stent 1 STENT PLACED 4 YEARS AGO History of herniorrhaphy History of tonsillectomy History of tooth extraction Hx of eye surgery RT/LEFT LENS REPLACEMENT Family History Father AAA (abdominal aortic aneurysm) from complications of AAA repair Mother , age 71 Pancreatic cancer Social History Preferred Language: Dutch Communication Ability: Effective Ski Base Trimmer Required: No Beliefs That Will Affect Care: None marital status: marital status details: 1 son, 1 daughter Current Living Situation: Spouse 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 He does have some constipation recently. He has been attempting to increase the fiber in his diet. Physical Exam Physical Exam: The patient is alert and oriented. Mood and affect appeared normal. He answered all questions appropriately. HEENT: Pupils are equal and reactive to light and accommodation. Extraocular movements are intact. The sclerae are anicteric. Neuro: Cranial nerves intact Neck: Patient's neck is supple. He has palpable carotid pulses bilaterally without bruits on auscultation. There is no evidence of jugular venous distention. The thyroid is not enlarged. Lungs: Clear to auscultation bilaterally. He has good air movement without use of accessory muscles. No rales wheezes or rhonchi. Cardiac: Heart demonstrates an irregular rate and rhythm. Normal S1 and S2. No murmurs on examination. Pulses: The patient has palpable radial pulses bilaterally that are equal in intensity Extremities: There was no evidence of hypoperfusion. There is no cyanosis or clubbing. There is no edema. Skin: I did not appreciate any rashes on examination today. Results & Data Vital Signs (Past 12 Hours) Vital Signs Temp Pulse Pulse Resp BP BP Pulse Ox 09/30/18 15:44 36.7 C 86 20 163/96 H 96 09/30/18 11:40 36.3 C L 80 15 135/61 97 09/30/18 11:14 82 18 123/84 95 09/30/18 09:01 110 H 18 146/110 H 95 09/30/18 07:53 93 09/30/18 07:44 36.6 C 82 20 143/106 H 93 Laboratory Results Abnormal Lab Results 09/30/18 09/30/18 09/30/18 08:07 08:07 08:07 WBC 7.30 RBC 3.95 L Hgb 14.2 Hct 43.0 MCV 108.9 H MCH 35.9 H MCHC 33.0 RDW Std Deviation 56.8 H RDW Coeff of Laina 14.2 Plt Count 137 MPV 10.6 H Immature Gran % (Auto) 0.5 Neut % (Auto) 59.6 Lymph % (Auto) 25.2 [place] % (Auto) 10.8 Eos % (Auto) 3.6 Baso % (Auto) 0.3 Immature Gran # (Auto) 0.04 H Neut # (Auto) 4.35 Lymph # (Auto) 1.84 [place] # (Auto) 0.79 H Eos # (Auto) 0.26 Baso # (Auto) 0.02 PT 12.2 H INR 1.2 H APTT 32.9 H PTT Ratio 1.2 Sodium 143 Potassium 4.3 Chloride 108 H Carbon Dioxide 28 Anion Gap 7.0 BUN 26 H Creatinine 1.20 Est Cr Clr Drug Dosing 47.6 Est GFR ( Amer) 65.8 Est GFR (Non-Af Amer) 56.8 BUN/Creatinine Ratio 21.5 H Glucose 85 Calcium 8.7 Total Bilirubin 0.6 AST 40 H ALT 37 Alkaline Phosphatase 121 H Troponin I < 0.015 Total Protein 6.3 L Albumin 3.0 L Globulin 3.3 Albumin/Globulin Ratio 0.9 Lipase 274 Folate TSH 09/30/18 09/30/18 11:50 11:50 WBC RBC Hgb Hct MCV MCH MCHC RDW Std Deviation RDW Coeff of Laina Plt Count MPV Immature Gran % (Auto) Neut % (Auto) Lymph % (Auto) [place] % (Auto) Eos % (Auto) Baso % (Auto) Immature Gran # (Auto) Neut # (Auto) Lymph # (Auto) [place] # (Auto) Eos # (Auto) Baso # (Auto) PT INR APTT PTT Ratio Sodium Potassium Chloride Carbon Dioxide Anion Gap BUN Creatinine Est Cr Clr Drug Dosing Est GFR ( Amer) Est GFR (Non-Af Amer) BUN/Creatinine Ratio Glucose Calcium Total Bilirubin AST ALT Alkaline Phosphatase Troponin I < 0.015 Total Protein Albumin Globulin Albumin/Globulin Ratio Lipase Folate 16.22 TSH 1.140 Diagnostic Findings Chest x-ray obtained at the time of admission diarrhea any acute cardiopulmonary process. ECG Additional Comments: Atrial fibrillation with controlled ventricular response and nonspecific ST and T-wave changes (1) Chest pain Chest pain type: unspecified Qualified Code(s): R07.9 - Chest pain, unspeci fied (2) Atrial fibrillation Atrial fibrillation type: chronic Qualified Code(s): I48.2 - Chronic atrial fibrillation (3) CAD (coronary artery disease) Coronary Disease-Associated Artery/Lesion type: unspecified vessel or lesion type [place] vs. transplanted heart: [place] heart Associated angina: with unspecified angina Qualified Code(s): I25.119 - Atherosclerotic heart disease of [place] coronary artery with unspecified angina pectoris
--- NOTE | 2018-09-30 18:04 | Discharge Summary ---
Date of Service date of admission - September 30, 2018 date of discharge - September 30, 2018 Admission HPI Per Admitting Provider 78yo male with history of CAD and chronic a.fib who presents with "indigestion" starting at 7am this am. He was sleeping and had a vivid dream about the beach. He awoke to a sensation of "indigestion" and pressure in his chest. Location - sternal area. He was previously hospitalized for an acute AL in [place] years ago. He underwent stenting of the coronary occlusion about 5 years in [place]. Today's discomfort/indigestion was DIFFERENT than the chest pressure he had experienced with his heart attack. He had associated burping but no nausea or vomiting. No sweats/diaphoresis. No dyspnea. No radiation of chest pressure to his neck, jaw or arms. He got up from bed and took his AM meds. He continued to burp and this relieved some of the symptoms. Since the pressure persisted he called 911. In the ambulance he was given SL nitro - he isn't sure if it helped. During my assessment he reports all symptoms are resolved. In the weeks leading up to this visit he has had NO GERD symptoms or other GI intolerance. Sees Dr Perez from [facility]. Last stress test - 2 years ago in [place] (negative). Principal Diagnosis chest pain, ACS ruled out Discharge Exam Constitutional average body habitus; no acute distress and no altered mental status Eyes PERRL ENMT external ear and nose normal, oropharynx normal Respiratory normal respiratory effort, lungs clear to auscultation Cardiovascular Rate/Rhythm: regular rate and + irregularly irregular Heart Sounds: normal S1 and normal S2; no murmur Vessels: posterior tibial pulses present and dorsalis pedis pulses present; no JVD Extremities: no edema Chest (Breasts) Additional Comments: no reproducible chest wall discomfort to palpation Gastrointestinal (Abdomen) normal bowel sounds, soft, nontender, no hepatosplenomegaly Neurologic no focal motor deficits Psychiatric A+Ox3, euthymic affect Discharge Data Allergies Allergy/AdvReac Type Severity Reaction Status Date / Time latex Allergy Mild RASH Verified 09/30/18 07:59 Consultations cardiology - Lyle Gordon MD Procedures Performed chest x-ray: FINDINGS: Cardiomediastinal and hilar silhouettes are unchanged. Tortuosity of the descending thoracic aorta. Unchanged mild blunting of the costophrenic angles. No pneumothorax, large pleural effusion or overt pulmonary edema. Linear subsegmental bibasilar opacities suggest atelectasis. Degenerative changes are seen about the shoulders and spine. IMPRESSION: No acute process. Hospital Course (1) Chest pain: Patient's pain was resolved by the time of ER presentation. The pain did not recur during his brief stay. EKG did not demonstrate ST changes. A.fib rate control was excellent while here. Troponin x 3 were negative. Chest x-ray and lung exam were normal. He was seen in consult by Dr Lyle Gordon, cardiology. Nuclear stress test was recommended but it was felt it could be safely pursued as an outpatient in the days following discharge. The patient also requested discharge to home (on the same day as admission) to take care of various personal affairs. At discharge he will continue all previous cardiac medications including aspirin, statin agent, beta francheska, etc. He was given a refill of SL nitro and asked to keep this with him at all times as a precautionary measure given his known CAD history. Lastly, in the event his pain was noncardiac (i.e. GI/GERD), I advised him to go back on his H2 francheska twice daily. (2) CAD (coronary artery disease): With acute AL 5 years ago in [place]. s/p stent at that time. He will continue his aspirin, statin, and beta francheska. See above in "chest pain." (3) Atrial fibrillation: Rates were nicely controlled his entire stay. Cont BB and CCB. Cont xarelto. (4) Gout: cont allopurinol for prophylaxis (5) Hypertension: BPs were mildly high during his brief stay. If his blood pressure continues to remain high after discharge then consider titration of his beta francheska or add an MORIS/ARB. (6) Hyperlipidemia: Cont statin. LDL in 12/2017 was <70. (7) Vitamin B12 deficiency: resolved. last level 12/2017 was >1000. (8) Macrocytosis: Vitamin B12 level was 1000 in 2018. Folate and TSH were normal during this stay. MCV has been 107-108 in the last year. Etiology is uncertain. Patient is aware of elevated MCV. I recommended that he discuss with his PCP a non-urgent consult with hematology as outpatient. Total Time Total Time Spent Total Time Spent (In Minutes): 35 Total Time Includes: Examination of the Patient, Discharge Planning, Medication Reconciliation and Communication With Other Providers Discharge Plan Discharge Items Patient Disposition: Home - Self-Care Reason For Visit: CHEST PAIN Discharge Diagnosis: chest pain, heart attack ruled out. Discharge Goals: Diagnostic testing and Therapeutic intervention Activity: As commented below Activity Comment: light activities until your stress test has been completed Sexual Activity: Wait until after follow-up appointment Exercise/Sports: Wait until after follow-up appointment Driving/Machine Use: No limitations Non-emergency contact: Primary Care Provider and Curriculum Writer Call non-emergency contact if: you have any medication questions, your symptoms worsen, your pain is not controlled and your temperature is above 100.5 Follow-up/Referrals: Gerry Joseph MD [Primary Care Provider] - (see Dr Joseph in 1 week) Raul Gordon MD [Physician] - (please contact Dr Gordon's office in the next 1-2 days to confirm date/time of stress test ) Diet: Heart Healthy Addtl Provider Instructions: You were admitted for an episode of chest pressure and indigestion. Your EKG and blood work for the heart were normal/negative. [facility] saw you in consult and an outpatient stress test will be arranged for you shortly after discharge to rule out the heart as the cause of your symptoms. Recommendations - 1. Outpatient stress test - this will be arranged for hopefully later this week. 2. In the event your pressure/indigestion was reflux disease (heartburn) please TAKE ranitidine 150mg twice daily. I sent a prescription to your pharmacy for you but this can also be purchased [id number]. 3. I also gave you a refill on your nitroglycerin tablets. Keep this bottle with you at all times in the event you have any chest pain, shortness of breath, left arm pain or neck pain, etc. If you have to take nitroglycerin please seek medical attention right away. 4. Lastly, your CBC (blood counts) show some mild abnormalities. Please speak to your family doctor about potentially seeing a international account representative (blood specialist) for this. Follow-up -- see separate section. Return to [facility] if -- -you have to take nitroglycerin tablets -you have worsening shortness of breath, chest pain, abdominal pain -you have nausea or vomiting -any other concerns Prescriptions: New nitroglycerin [Nitrostat] 0.4 mg Tablet, Sublingual 0.4 mg sublingual UD PRN (Reason: chest pain) Qty: 1 RF: 0 Continued ipratropium bromide 42 mcg (0.06 %) spray,non-aerosol 2 sprays INTNAS TID RF: 0 multivitamin 1 tab PO QDL RF: 0 atorvastatin 80 mg Tablet 80 mg PO QAM RF: 0 diltiazem HCl [Cartia XT] 180 mg Capsule,Extended Release 24hr 180 mg PO QAM RF: 0 metoprolol succinate 50 mg Tablet Extended Release 24 Hr 50 mg PO QAM RF: 0 cyanocobalamin (vitamin B-12) 1,000 mcg Tablet 1,000 mcg PO QDL RF: 0 aspirin 81 mg Tablet,Delayed Release (Dr/Ec) 1 tab PO QAM RF: 0 allopurinol 300 mg Tablet 300 mg PO QAM RF: 0 finasteride 5 mg Tablet 5 mg PO QAM RF: 0 diazepam 5 mg Tablet 5 mg PO TID PRN (Reason: Anxiety) RF: 0 Xarelto 20 mg Tablet 20 mg PO QAM RF: 0 guaifenesin [Mucinex] 600 mg Tablet Extended Release 12hr 600 mg PO HS RF: 0 ranitidine HCl 150 mg Tablet 150 mg PO BID Qty: 60 RF: 1 Stand-Alone Forms: [facility]/Other Patient Handouts: Angina Dc Discharge Orders: Discharge Order (Routine); Ordered 09/30/18 Ordered By: Iftikhar Marquez Admission Data Admit Date/Time: 09/30/18 11:27 Attending Provider: Iftikhar Marquez Admit Provider: Iftikhar Marquez Primary Care Provider: Gerry Joseph Other Providers: Iftikhar Marquez ; Raul Gordon Service: Telemetry Other Interventions: Discharge Summary Assessment (RN) Last Done: 09/30/18 17:40 DC Date/Time DO NOT enter until pt leaves facility: 09/30/18 18:13
[2018-09-30] MEDS ORDERED: guaiFENesin 600 MG TABCR PO SCH (21:00)
[2018-10-01] MEDS ORDERED: FINASTERIDE 5 MG TAB PO SCH (09:00)
[2018-10-01] MEDS ORDERED: ALLOPURINOL 300 MG TAB PO SCH (09:00)
[2018-10-01] MEDS ORDERED: ATORVASTATIN 40 MG TAB PO SCH (09:00)
[2018-10-01] MEDS ORDERED: METOPROLOL SUCC 50MG EXT REL TAB PO SCH (09:00)
[2018-10-01] MEDS ORDERED: RIVAROXABAN 20 MG TAB PO SCH (09:00)
[2018-10-01] MEDS ORDERED: dilTIAZem HCL 180 MG CAPCR PO SCH (09:00)
[2018-10-01] MEDS ORDERED: ASPIRIN 81 MG ECTAB PO SCH (09:00)
== END 2018-09-30 18:13 | disposition home or self-care (01) ==
LOC: 2S 07:40 → ED 07:40 → 2S 11:18
DX: Z79.899 Other long term (current) drug therapy; I48.2 Chronic atrial fibrillation; E53.8 Deficiency of other specified B group vitamins; E78.5 Hyperlipidemia, unspecified; Z79.01 Long term (current) use of anticoagulants; M10.9 Gout, unspecified; R07.9 Chest pain, unspecified; Z86.718 Personal history of other venous thrombosis and embolism; N40.0 Benign prostatic hyperplasia without lower urinary tract symptoms; Z91.040 Latex allergy status; Z79.82 Long term (current) use of aspirin; Z86.711 Personal history of pulmonary embolism; I10 Essential (primary) hypertension; Z95.5 Presence of coronary angioplasty implant and graft; I25.10 Atherosclerotic heart disease of native coronary artery without angina pectoris